=== PATIENT | female | born 1955 | race Caucasian/White ===

== ENCOUNTER 2023-02-15 13:50 | Outpatient (CLI) | payer MEDICARE, MEDICAID, SELFPAY ==
[2023-02-15 14:02] VITALS: BP 114/73; PULSE 79; RESP 16; TEMP 35.8; O2SAT 98; BMI 24.8
[2023-02-15] MEDS: DENOSUMAB 60 MG/ML SC (14:07)
== END 2023-02-15 13:51 | disposition home or self-care (01) ==
PROVIDERS: PCP Family Medicine; Referring Provider Family Medicine; Visit Provider Family Medicine
DX: M81.0 Age-related osteoporosis without current pathological fracture (principal)
CPT/HCPCS: 96372; J0897

== ENCOUNTER 2023-08-16 13:59 | Outpatient (CLI) | payer MEDICARE, MEDICAID, SELFPAY ==
[2023-08-16] MEDS: DENOSUMAB 60 MG/ML SC (14:09)
[2023-08-16 14:12] VITALS: BP 131/94; PULSE 96; RESP 16; TEMP 35.8
== END 2023-08-16 14:00 | disposition home or self-care (01) ==
PROVIDERS: PCP Family Medicine; Referring Provider Family Medicine; Visit Provider Family Medicine
DX: M81.0 Age-related osteoporosis without current pathological fracture (principal)
CPT/HCPCS: 96372; J0897

== ENCOUNTER 2024-02-05 07:53 | Outpatient (RCR) | payer MEDICARE, MEDICAID, SELFPAY ==
--- NOTE | 2024-02-05 10:15 | HP.PTEVAL ---
Patient's Visit Information Visit Information Visit Information: CARMELA MONTOYA is a 68 year old F referred to Physical Therapy by Dr. Nitin Rhodes MD with a diagnosis of Wheel chair eval. Date of Evaluation: 02/05/24 Physical Therapist: Raciel Pedroza, PT, ATC Visit Plan Frequency: 1x/Week Duration: 1 Week Plan: Pt was evaluated for a wheelchair today. Discharge Subjective Subjective: Pt is 105 pounds, and 48 1/2inches tall. Pt has been wheelchair bound since 2019. Pt is non-ambulatory at this time. Pt lives in a custodial at [facility] where she receives 24 hour care from her caregiver. 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 Pt is a max assist with all transfers. Pt has no Hx of pressure ulcers, but her caregiver is concerned that she will one day get them without the appropriate chair to sit in throughout the day. Pt is dependent with all ADL's and IADL's at this time. Pt will slouch in her manual wheelchair at times, and once she starts slouching, she is so weak that she is unable to push herself back up into a comfortable position. 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 Pt always maintains a forward head posture and increased thoracic kyphosis which makes her caregiver worried that she is a fall risk out of her chair. Objective Objective: Neuro: Pt is unable to verbalize light touch. Pt does make verbal noises with touch Posture: Pt sits with significant forward head posture, rounded shoulder, significant thoracic spine kyphosis, and significant decrease in L/S lordosis MMT: B UE's are rated at 2-/5 throughout ROM: B shoulder IR= 60, ER=0, flex= 60, abd= 70 degrees. B hip flex= 90, B knee ext= -30, B knee flex= 90 Transfers: fully dependent Gait: Non-ambulatory Goals Goal 1:: N/A Rehabilitation Potential Physical Therapy Diagnosis: Pt is fully dependent with transfers and non ambulatory Rehabilitation Potential: Good Anticipated Interventions Patient/Client Instruction: Educate patient on: Condition and Plan of Care For the Purpose of:: To improve self management Text: Thank you for the opportunity to evaluate your patient. For Medicare and Medicare HMO plans, please review the plan of care and approve it. It will need to be FAXED BACK to us at [phone] for Medicare purposes. For Medicare only, by signing this I certify the plan of care. Please let me know if there are questions or concerns regarding this plan of care. Physician Signature: Date:
== END 2024-03-11 19:00 | disposition home or self-care (01) ==
LOC: PT 07:53
PROVIDERS: PCP Family Medicine; Referring Provider Family Medicine; Visit Provider Family Medicine
DX: R68.89 Other general symptoms and signs (principal); R26.89 Other abnormalities of gait and mobility; M25.561 Pain in right knee; G89.29 Other chronic pain
CPT/HCPCS: 97161

== ENCOUNTER 2024-03-24 14:19 | Outpatient (CLI) | payer MEDICARE, MEDICAID, SELFPAY ==
[2024-03-24 14:32] VITALS: PULSE 82; RESP 14; TEMP 36.3; BMI 22.0
[2024-03-24] MEDS: DENOSUMAB 60 MG/ML SC (15:01)
== END 2024-03-24 23:59 | disposition home or self-care (01) ==
LOC: MEDOUTP 14:19
PROVIDERS: PCP Family Medicine; Referring Provider Family Medicine; Visit Provider Family Medicine
DX: M81.0 Age-related osteoporosis without current pathological fracture (principal)
CPT/HCPCS: 96372; J0897

== ENCOUNTER 2024-09-25 10:31 | Outpatient (CLI) | payer MEDICARE, MEDICAID, SELFPAY ==
[2024-09-25 10:42] VITALS: BP 118/77; PULSE 85; RESP 16; TEMP 35.8; O2SAT 96; BMI 40.3
[2024-09-25] MEDS: DENOSUMAB 60 MG/ML SC (10:45)
== END 2024-09-25 23:59 | disposition home or self-care (01) ==
PROVIDERS: PCP Family Medicine; Referring Provider Family Medicine; Visit Provider Family Medicine
DX: M81.0 Age-related osteoporosis without current pathological fracture (principal)
CPT/HCPCS: 96372; J0897

== ENCOUNTER 2025-04-02 11:58 | Outpatient (CLI) | payer MEDICARE, MEDICAID, SELFPAY ==
[2025-04-02 12:13] VITALS: BP 111/73; PULSE 96; RESP 16; TEMP 36.1; O2SAT 96; BMI 38.8
[2025-04-02] MEDS: DENOSUMAB 60 MG/ML SC (12:17)
== END 2025-04-02 23:59 | disposition home or self-care (01) ==
LOC: MEDOUTP 12:00
PROVIDERS: PCP Family Medicine; Referring Provider Family Medicine; Visit Provider Family Medicine
DX: M81.0 Age-related osteoporosis without current pathological fracture (principal)
CPT/HCPCS: 96372; J0897